=== PATIENT | female | born 1965 | race Caucasian/White ===

== ENCOUNTER 2020-12-18 18:14 | Emergency (ER) | payer OTHER ==
[~2020-12-18 18:14] MED LIST: AMITRIPTYLINE H50 MG PO; ASPIRIN EC81 MG PO; BETAPACE120 MG PO; CELEXA20 MG PO; COZAAR 25MG TAB25 MG PO; GLUCOPHAGE1000 MG PO; HUMULIN 70100 UNIT/2 SC; ISOSORBIDE MONO30 MG PO; LIPITOR80 MG PO; METHOCARBAMOL750 MG PO; NEURONTIN300 MG PO; NITROSTAT 0.40.4 MG SL; TOPAMAX50 MG PO; WELCHOL 625 MG625 MG PO
[2020-12-18] MEDS ORDERED: CEPHALEXIN500 MG PO (19:15)
[2020-12-20] MEDS ORDERED: HUMULIN R100 UNIT/1 INJ (08:22)
== END 2020-12-18 19:19 | disposition home or self-care (01) ==
LOC: ER1 18:14
DX: Z03.821 Encounter for observation for suspected ingested foreign body ruled out (principal); E11.9 Type 2 diabetes mellitus without complications; I51.9 Heart disease, unspecified
CPT/HCPCS: 74018; 99283

== ENCOUNTER → 2020-12-20 | Day surgery (SDC) | payer OTHER ==
[~2020-12-20] MED LIST changes: +CEPHALEXIN500 MG PO; +HUMALOG 10100 UNITS/ SC; +HUMULIN R100 UNIT/1 INJ; +LANTUS INS100 UTS/M1 SC; +MELATONIN3 MG PO; +NITROSTAT0.4 MG SL; +PROTONIX 40 MG40 M1 PO; +ROBAXIN 750 MG750 MG PO; +WELCHOL625 MG PO
== END | disposition home or self-care (01) ==
LOC: OR 07:21
PROVIDERS: Internal Medicine Gastroenterology
PROC: 0DBB8ZX Excision of Ileum, Via Natural or Artificial Opening Endoscopic, Diagnostic (ICD-10-PCS; 2020-12-20)
PROC: 0DBL8ZX Excision of Transverse Colon, Via Natural or Artificial Opening Endoscopic, Diagnostic (ICD-10-PCS; principal; 2020-12-20 07:00)
DX: R19.7 Diarrhea, unspecified (principal); D12.3 Benign neoplasm of transverse colon; K64.1 Second degree hemorrhoids; K63.3 Ulcer of intestine; I25.10 Atherosclerotic heart disease of native coronary artery without angina pectoris; G43.909 Migraine, unspecified, not intractable, without status migrainosus; I49.3 Ventricular premature depolarization; E78.00 Pure hypercholesterolemia, unspecified; I10 Essential (primary) hypertension; E78.5 Hyperlipidemia, unspecified; E11.9 Type 2 diabetes mellitus without complications; E66.01 Morbid (severe) obesity due to excess calories; Z68.37 Body mass index [BMI] 37.0-37.9, adult; Z88.5 Allergy status to narcotic agent; Z88.8 Allergy status to other drugs, medicaments and biological substances; Z91.048 Other nonmedicinal substance allergy status; Z87.891 Personal history of nicotine dependence; Z79.4 Long term (current) use of insulin; Z79.82 Long term (current) use of aspirin; Z79.899 Other long term (current) drug therapy; Z20.822 Contact with and (suspected) exposure to COVID-19
CPT/HCPCS: 82962; J2704; J7040

== ENCOUNTER 2021-04-24 18:08 | Inpatient (IN) | payer SELFPAY ==
[~2021-04-24] VITALS: Ht 157.5 cm; Wt 98.0 kg
[~2021-04-24 18:08] MED LIST changes: -HUMALOG 10100 UNITS/ SC; -LANTUS INS100 UTS/M1 SC; -MELATONIN3 MG PO; -NITROSTAT0.4 MG SL; -PROTONIX 40 MG40 M1 PO; -ROBAXIN 750 MG750 MG PO; -WELCHOL625 MG PO
[2021-04-24 19:38] LABS: HEMOGLOBIN 7.6 gm/dl (12.3-15.3); RED BLOOD COUNT 2.58 M/UL (4.00-5.10)
[2021-04-24 20:06] LABS: BUN/CREATININE RATIO 28 (0-10)
[2021-04-24] MEDS ORDERED: NITROSTAT0.4 MG SL (22:45)
[2021-04-24] MEDS ORDERED: ROBAXIN 750 MG750 MG PO (22:45)
[2021-04-24] MEDS ORDERED: WELCHOL625 MG PO (22:46)
[2021-04-25 02:17] LABS: HEMOGLOBIN 8.1 gm/dl (12.3-15.3)
[2021-04-25 10:49] LABS: HEMOGLOBIN 7.7 gm/dl (12.3-15.3)
[2021-04-25 11:56] LABS: ADENOVIRUS F 40/41 Not Detected (Negative); ASTROVIRUS Not Detected (Negative); CAMPYLOBACTER Not Detected (Negative); CLOSTRIDIUM DIFFICILE TOX A/B Not Detected (Negative); CRYPTOSPORIDIUM Not Detected (Negative); E.COLI 0157 Not Detected (Negative); ENTAMOEBA HISTOLYTICA Not Detected (Negative); ENTEROAGGREGATIVE E.COLI (EAEC Not Detected (Negative); ENTEROPATHOGENIC E.COLI (EPEC) Not Detected (Negative); ENTEROTOXIGENIC E.COLI (ETEC) Not Detected (Negative); GIARDIA LAMBLIA Not Detected (Negative); NOROVIRUS GI/GII Not Detected (Negative); PLESIOMONAS SHIGELLOIDES Not Detected (Negative); ROTOVIRUS A Not Detected (Negative); SALMONELLA Not Detected (Negative); SAPOVIRUS Not Detected (Negative); SHIG/ENTEROINVAS.ECOLI (EIEC) Not Detected (Negative); SHIGA-LIK TOX.PRO.E.COLI (STEC Not Detected (Negative); VIBRIO Not Detected (Negative); VIBRIO CHOLERAE Not Detected (Negative); YERSINIA ENTEROCOLITICA Not Detected (Negative)
[2021-04-25 17:44] LABS: HEMOGLOBIN 7.8 gm/dl (12.3-15.3)
[2021-04-26 02:50] LABS: HEMOGLOBIN 8.1 gm/dl (12.3-15.3); RED BLOOD COUNT 2.74 M/UL (4.00-5.10); WHITE BLOOD COUNT 11.5 K/UL (4.5-11.0)
[2021-04-26 03:20] LABS: BUN/CREATININE RATIO 11 (0-10)
[2021-04-27 05:14] LABS: HEMOGLOBIN 7.9 gm/dl (12.3-15.3); RED BLOOD COUNT 2.7 M/UL (4.00-5.10); WHITE BLOOD COUNT 10.6 K/UL (4.5-11.0)
[2021-04-27 05:47] LABS: BUN/CREATININE RATIO 15 (0-10)
[2021-04-27] MEDS ORDERED: MELATONIN3 MG PO (14:36)
[2021-04-27] MEDS ORDERED: PROTONIX 40 MG40 M1 PO (14:36)
[2021-04-27] MEDS ORDERED: LANTUS INS100 UTS/M1 SC (14:36)
[2021-04-27] MEDS ORDERED: HUMALOG 10100 UNITS/ SC (14:36)
== END 2021-04-27 16:50 | disposition home or self-care (01) | DRG 378 ==
LOC: ER1 18:08 → PROG CARE 20:43 → CDU 20:43 → PROG CARE 22:58 → M/S 04-25 21:34
PROVIDERS: Internal Medicine; Preventive Medicine Occupational Medicine; ADMIT Internal Medicine
DX: K92.1 Melena (principal); K55.9 Vascular disorder of intestine, unspecified; D62 Acute posthemorrhagic anemia; E87.2 Acidosis; D12.6 Benign neoplasm of colon, unspecified; Z20.822 Contact with and (suspected) exposure to COVID-19; I95.9 Hypotension, unspecified; E11.9 Type 2 diabetes mellitus without complications; I25.10 Atherosclerotic heart disease of native coronary artery without angina pectoris; E66.9 Obesity, unspecified; E86.1 Hypovolemia; H93.13 Tinnitus, bilateral; K76.0 Fatty (change of) liver, not elsewhere classified; Z79.4 Long term (current) use of insulin; Z90.49 Acquired absence of other specified parts of digestive tract; Z79.82 Long term (current) use of aspirin; Z88.6 Allergy status to analgesic agent; Z88.8 Allergy status to other drugs, medicaments and biological substances; Z68.39 Body mass index [BMI] 39.0-39.9, adult
CPT/HCPCS: 0240U; 36415; 71046; 80048; 80053; 81001; 82550; 82553; 82607; 82746; 82962; 83036; 83540; 83550; 83605; 83690; 83880; 84484; 85014; 85018; 85025; 85045; 85652; 86140; 87086; 87507; 93005; 96374; 96375; 99285; C9113; J0696; J2405; J7030; J7050; Q9967

== ENCOUNTER 2021-07-31 12:30 | Emergency (ER) | payer SELFPAY ==
[~2021-07-31] VITALS: Ht 157.5 cm; Wt 97.5 kg
[~2021-07-31 12:30] MED LIST changes: +HUMALOG 10100 UNITS/ SC; +LANTUS INS100 UTS/M1 SC; +MELATONIN3 MG PO; +NITROSTAT0.4 MG SL; +PROTONIX 40 MG40 M1 PO; +ROBAXIN 750 MG750 MG PO; +WELCHOL625 MG PO
== END 2021-07-31 15:30 | disposition home or self-care (01) ==
LOC: ER1 12:30
DX: U07.1 COVID-19 (principal); E11.9 Type 2 diabetes mellitus without complications; Z88.8 Allergy status to other drugs, medicaments and biological substances
CPT/HCPCS: 71045; 99284; M0243

== ENCOUNTER 2021-10-01 19:07 | Emergency (ER) | payer SELFPAY ==
[2021-10-01 19:54] LABS: HEMOGLOBIN 16.3 gm/dl (12.3-15.3); RED BLOOD COUNT 5.72 M/UL (4.00-5.10); WHITE BLOOD COUNT 11.2 K/UL (4.5-11.0)
[2021-10-01 20:11] LABS: BUN/CREATININE RATIO 24 (0-10)
== END 2021-10-02 01:40 | disposition home or self-care (01) ==
LOC: ER1 19:07
PROVIDERS: Physician Assistant
DX: R10.12 Left upper quadrant pain (principal); K76.0 Fatty (change of) liver, not elsewhere classified; I25.10 Atherosclerotic heart disease of native coronary artery without angina pectoris; E11.9 Type 2 diabetes mellitus without complications; Z88.8 Allergy status to other drugs, medicaments and biological substances
CPT/HCPCS: 36415; 80053; 82550; 82553; 83690; 83874; 84484; 85025; 85379; 96374; 99284; J2270; J2405; Q9967

== ENCOUNTER → 2022-04-18 | Outpatient (CLI) | payer OTHER | LOC: US 14:45 | DX: R79.89 Other specified abnormal findings of blood chemistry (principal) | CPT/HCPCS: 76856 ==

== ENCOUNTER → 2022-05-08 | Outpatient (CLI) | payer OTHER ==
[2022-05-09 09:13] LABS: DHEA-SULFATE 39.4 ug/dL (29.4-220.5); PROLACTIN 18.5 ng/mL (4.8-23.3); TESTOSTERONE, SERUM 184 ng/dL (4-50)
== END ==
LOC: LAB 08:32
PROVIDERS: Internal Medicine Endocrinology, Diabetes & Metabolism
DX: R79.89 Other specified abnormal findings of blood chemistry (principal)
CPT/HCPCS: 36415; 82157; 82627; 83498; 84146; 84403

== ENCOUNTER → 2022-05-19 | Outpatient (CLI) | payer OTHER | LOC: HEART 5 04-22 15:00 | DX: I25.119 Atherosclerotic heart disease of native coronary artery with unspecified angina pectoris (principal); R00.2 Palpitations; I08.8 Other rheumatic multiple valve diseases | CPT/HCPCS: 93306 ==